=== PATIENT | male | born 1965 | race Caucasian/White ===

== ENCOUNTER 2016-10-13 12:09 | Emergency (ER) | payer MEDICARE, OTHER ==
[~2016-10-13] VITALS: Ht 165.1 cm; Wt 78.6 kg
[~2016-10-13 12:09] MED LIST: CLIN-72 PO; DOCU250C58 PO; FENO160T13 PO; FOLI-49 PO; LISI10TA2 PO; MELO-174 PO; MULT1CAP20 PO; ROSU5TAB5 PO; SOLI5TAB5 PO
[2016-10-13 12:12] VITALS: Ht 165.1 cm; Wt 78.6 kg
[2016-10-13] MEDS ORDERED: DOCU-144 PO (13:16)
[2016-10-13] MEDS ORDERED: PHEN1SUP80 PR (13:16)
--- NOTE | 2016-10-13 13:25 | ERD ---
ER Documentation Chief Complaint Date/Time DATE: 10/13/16 TIME: 13:18 Chief Complaint CONSTIPATIONX 2 DAYS HPI 50-year-old male accompanied by his blow pit helper is complaining of constipation and rectal pain for the last 2 days. Patient stated that his stool yesterday has been very hard. He has pain at his anus with bowel movement. His last bowel movement was this morning, very small amount. Patient stated that his stool this morning is not as hard as yesterday, but he still has pain in his anus. Denies fever or chills. Denies abdominal pain. Denies dysuria. Patient appears to have developmental delay. The history is limited due to patient's developmental delay. His blow pit helper states that she is new to him, she does not know of any medical history or medications for the patient. Patient lives at independent low income housing. ROS All systems reviewed and are negative except as per history of present illness. Medications Home Meds Active Scripts Docusate Sodium* (Colace*) 100 Mg Capsule, 100 MG PO DAILY, #30 CAP Prov:JAMIA FELIPE. INSTRUMENT/CONTROL TECHNICIAN 10/13/16 Phenylephrine HCl/[place] [employer]* (Preparation H* Suppository) 1 Each Supp.rect, 1 EACH OH BID Y for PAIN, #10 SUPP.RECT Prov:JAMIA FELIPE INSTRUMENT/CONTROL TECHNICIAN 10/13/16 Clindamycin Hcl* (Clindamycin Hcl*) 150 Mg Capsule, 450 MG PO QID for 7 Days, CAP Prov:RADHA HAYWARD PA-C 03/16/15 Reported Medications Meloxicam* (Mobic*) 7.5 Mg Tab, 7.5 MG PO DAILY, TAB 03/18/15 Solifenacin* (Vesicare*) 5 Mg Tablet, 5 MG PO DAILY, TAB 03/18/15 Rosuvastatin Calcium* (Crestor*) 5 Mg Tablet, 5 MG PO HS, TAB 03/18/15 Multivitamins* (Multivitamin*) 1 Udcap Capsule, 1 TAB PO DAILY, TAB 03/18/15 Lisinopril* (Lisinopril*) 10 Mg Tablet, 10 MG PO DAILY, TAB 03/18/15 Folic Acid* (Folic Acid*) 1 Mg Tablet, 1 MG PO BID, TAB 03/18/15 Fenofibrate, Micronized* (Fenofibrate*) 160 Mg Tablet, 160 MG PO DAILY, TAB 03/18/15 Docusate Sodium* (Colace*) 250 Mg Capsule, 250 MG PO DAILY, CAP 03/18/15 Allergies Allergies: Coded Allergies: erythromycin base (Verified Allergy, Mild, 03/18/15) lactose (Verified Allergy, Mild, 03/18/15) penicillin G (Verified Allergy, Mild, 03/18/15) PMhx/Soc History of Surgery: No Anesthesia Reaction: No Hx Neurological Disorder: Yes (MOD MENTAL RETARDATION. SCHIZOPHRENIA. AUTISM. ADD. AND CEREBRAL PALSY) Hx Respiratory Disorders: No Hx Cardiac Disorders: No Hx Psychiatric Problems: No Hx Miscellaneous Medical Probl: No Hx Alcohol Use: No Hx Substance Use: No Hx Tobacco Use: No Physical Exam Vitals Vital Signs Date Time Temp Pulse Resp B/P Pulse Ox O2 Delivery O2 Flow Rate FiO2 10/13/16 12:12 97.5 68 20 150/72 99 Physical Exam General: Well-developed, well-nourished, conscious and coherent, in no distress Skin: Warm and dry without rash, good texture and turgor Head: Normocephalic without evidence of trauma Eyes: Sclera and conjunctivae normal; pupils equal, round, and reactive to light; extraocular movements are intact Neck: Supple without meningismus or adenopathy. Carotids are equal. Trachea midline. No bruits or JVD Chest: Normal AP diameter. Good expansion without retractions. Nontender. Lungs are clear to auscultate bilaterally with good tidal volume Heart: Regular rate and rhythm. No murmur, rub, or gallops heard Abdomen: Soft and nontender without masses, guarding, or rebound. Bowel sounds are active. No hepatosplenomegaly Back: Without spinal or CVA tenderness Pelvis: Nontender to palpation and stable to compression Extremities: Full range of motion. Good strength bilaterally. No clubbing, cyanosis, or edema. Peripheral pulses are intact. Sensation intact Neuro: Alert and oriented 4, GCS 15. Cranial nerves II-XII intact. Motor and sensory exams nonfocal. Moves all extremities. Speech clear. Gait normal Procedures/MDM 50-year-old male with developmental delay presents to ED with rectal pain and constipation. I suspect his rectal pain is due to anal fissure or hemorrhoids secondary to constipation. Low suspicion for anal or rectal abscess. Patient and his blow pit helper are advised to increase fluid and fiber intake. Patient appears well, stable for discharge and outpatient management. Medical decision making shared with patient and family. Education provided to patient and family. Patient and family expressed understanding of the plan. Medications on discharge: Preparation H suppository, Colace. Follow-up: Primary care provider in 2-3 days or return to ED if worse. Departure Diagnosis: Primary Impression: Constipation Constipation type: unspecified constipation type Qualified Code: K59.00 - Constipation, unspecified constipation type Condition: Good Patient Instructions: Constipation (Adult) Referrals: FRACISCO ROSARIO (PCP) Additional Instructions: Call your primary care doctor TOMORROW for an appointment during the next 2-3 days.See the doctor sooner or return here if your condition worsens before your appointment time. JAMIA FELIPE NP October 13, 2016 13:25
== END 2016-10-13 13:25 | disposition home or self-care (01) ==
LOC: FTE 12:09
DX: K59.00 Constipation, unspecified (principal); F84.0 Autistic disorder
CPT/HCPCS: 99283